=== PATIENT | female | born 1990 | race Asian ===

== ENCOUNTER 2020-03-09 23:02 | Emergency (ER) | payer BC, OTHER ==
--- NOTE | 2020-03-09 23:10 | ED Physician Documentation ---
History of Present Illness - Stated complaint Stated Complaint: FEM /10WEK PREG - History obtained from History obtained from: Patient (the patient is a 29 y/o f who is a @ 10 weeks by LMP who p/w vaginal bleeding and cramping pelvic pain without flank pain or dysuria. denies any other complaints.) Review of Systems Constitutional: reports: Reviewed and negative Eyes: reports: Reviewed and negative Ears: reports: Reviewed and negative Nose: reports: Reviewed and negative Throat: reports: Reviewed and negative Cardiac: reports: Reviewed and negative Respiratory: reports: Reviewed and negative GI: reports: Reviewed and negative : reports: Vaginal bleeding, Now EGA (10 weeks.) Skin: reports: Reviewed and negative Musculoskeletal: reports: Reviewed and negative Neurologic: reports: Reviewed and negative Psychiatric: reports: Reviewed and negative Endocrine: reports: Reviewed and negative Immunocompromised: reports: Reviewed and negative PD PAST MEDICAL HISTORY - Allergies Allergies/Adverse Reactions: Allergies Allergy/AdvReac Type Severity Reaction Status Date / Time No Known Drug Allergies Allergy Verified 03/09/20 23:08 PD ED PE NORMAL - Vitals Vital signs reviewed: Yes - General General: Alert and oriented X 3, No acute distress - HEENT HEENT: PERRL - Neck Neck: Supple, no meningeal sign - Cardiac Cardiac: RRR, No murmur - Respiratory Respiratory: Clear bilaterally - Abdomen Abdomen: Normal bowel sounds, Soft, Non tender, Non distended - Derm Derm: Warm and dry - Extremities Extremities: No deformity - Neuro Neuro: Alert and oriented X 3 - Psych Psych: Normal mood, Normal affect Results - Vitals Vitals: Vital Signs - 24 hr 03/09/20 23:08 Temperature 36.7 C Heart Rate 81 Respiratory 14 Rate Blood Pressure 121/79 O2 Saturation 100 Oxygen O2 Source Room air - Labs Labs: Laboratory Tests 03/09/20 03/09/20 03/09/20 23:15 23:50 23:50 WBC 9.7 RBC 5.71 H Hgb 12.3 Hct 38.8 MCV 68.0 L MCH 21.5 L MCHC 31.7 L RDW 15.4 H Plt Count 365 MPV 10.7 Neut # (Auto) 6.9 H Lymph # (Auto) 2.0 Dent # (Auto) 0.4 Eos # (Auto) 0.2 Baso # (Auto) 0.1 Absolute Nucleated RBC 0.00 Nucleated RBC % 0.0 Manual Slide Review Indicated WBC Morphology NORMAL APPEARANCE Platelet Estimate NORMAL (130-450,000) Platelet Morphology NORMAL APPEARANCE RBC Morph Micro Appear 1+ MICROCYTOSIS Sodium 135 Potassium 3.1 L Chloride 100 L Carbon Dioxide 24 Anion Gap 11.0 BUN 11 Creatinine 0.7 Estimated GFR (MDRD) 98 Glucose 131 H Calcium 9.5 Total Bilirubin 0.5 AST 17 ALT 14 Alkaline Phosphatase 38 L Total Protein 8.3 H Albumin 4.6 Globulin 3.7 Albumin/Globulin Ratio 1.2 Lipase 35 HCG, Quant Urine Color YELLOW Urine Clarity CLEAR Urine pH 6.5 Ur Specific [place] <=1.005 Urine Protein NEGATIVE Urine Glucose (UA) NEGATIVE Urine Ketones NEGATIVE Urine Occult Blood SMALL H Urine Nitrite NEGATIVE Urine Bilirubin NEGATIVE Urine Urobilinogen 0.2 (NORMAL) Ur Leukocyte Esterase NEGATIVE Urine RBC 0-5 Urine WBC 0-3 Ur Squamous Epith Cells FEW Squamous Urine Bacteria None Seen Ur Microscopic Review INDICATED Urine Culture Comments NOT INDICATED Urine HCG, Qual POSITIVE Blood Type 03/09/20 03/09/20 23:50 23:50 WBC RBC Hgb Hct MCV MCH MCHC RDW Plt Count MPV Neut # (Auto) Lymph # (Auto) Dent # (Auto) Eos # (Auto) Baso # (Auto) Absolute Nucleated RBC Nucleated RBC % Manual Slide Review WBC Morphology Platelet Estimate Platelet Morphology RBC Morph Micro Appear Sodium Potassium Chloride Carbon Dioxide Anion Gap BUN Creatinine Estimated GFR (MDRD) Glucose Calcium Total Bilirubin AST ALT Alkaline Phosphatase Total Protein Albumin Globulin Albumin/Globulin Ratio Lipase HCG, Quant 83604.00 Urine Color Urine Clarity Urine pH Ur Specific [place] Urine Protein Urine Glucose (UA) Urine Ketones Urine Occult Blood Urine Nitrite Urine Bilirubin Urine Urobilinogen Ur Leukocyte Esterase Urine RBC Urine WBC Ur Squamous Epith Cells Urine Bacteria Ur Microscopic Review Urine Culture Comments Urine HCG, Qual Blood Type AB POSITIVE PD MEDICAL DECISION MAKING - ED course Complexity details: considered differential (Early . Quant is greater than 40,000 on formal ultrasound shows gestational sac at 6 weeks with no cardiac activity uncertain viability of patient updated on plan she has follow-up on 2 days from now with her OB provider at [facility] would be David plan will be for repeat ultrasound in 48 hours and repeat quant.) Departure - Departure Disposition: 01 Home, Self Care Clinical Impression: Vaginal bleeding during Condition: Stable Instructions: ED Care, Bleeding Early Preg Follow-Up: your, doctor [Other] - Tomorrow Comments: Follow-up with your OB provider as scheduled on for repeat ultrasound and repeat quant.
[2020-03-09 23:12] VITALS: BP 121/79
[2020-03-09 23:23] LABS: BILIRUBIN,URINE NEGATIVE (NEGATIVE); GLUCOSE, URINE (UA) NEGATIVE (NEGATIVE); KETONES,URINE (UA) NEGATIVE (NEGATIVE); LEUKOCYTE ESTERASE, URINE NEGATIVE (NEGATIVE); NITRITE,URINE NEGATIVE (NEGATIVE); OCCULT BLOOD,URINE SMALL (NEGATIVE); PH,URINE 6.5 PH (5.0-7.5); PROTEIN,URINE NEGATIVE (NEGATIVE); UROBILINOGEN,URINE 0.2 (NORMAL) E.U./dL (NORMAL)
[2020-03-09 23:26] LABS: CLARITY,URINE CLEAR (CLEAR); HCG UR QUAL POSITIVE
[2020-03-09 23:38] LABS: BACTERIA,URINE None Seen /HPF (None Seen); RBC,URINE 0-5 /HPF (0-5); SQUAMOUS EPITHELIAL CELL,UR FEW Squamous (<= Few)
[2020-03-09 23:56] LABS: BASOPHILS # (AUTO) 0.1 10^3/uL (0.0-0.1); BASOPHILS % (AUTO) 0.7 %; EOSINOPHILS # (AUTO) 0.2 10^3/uL (0.0-0.7); EOSINOPHILS % (AUTO) 2.1 %; HGB - HEMOGLOBIN 12.3 g/dL (12.0-16.0); MEAN CORPUSCULAR HEMOGLOBIN 21.5 pg (27.0-31.0); MEAN CORPUSCULAR HGB CONC 31.7 g/dL (32.0-36.0); MEAN PLATELET VOLUME 10.7 fL (7.9-10.8); MONOCYTES # (AUTO) 0.4 10^3/uL (0.0-1.0); MONOCYTES % (AUTO) 4.5 %; NEUTROPHILS # (AUTO) 6.9 10^3/uL (1.5-6.6); NEUTROPHILS % (AUTO) 71.3 %; PLT - PLATELET COUNT 365 10^3/uL (130-450); RED BLOOD COUNT 5.71 10^6/uL (4.20-5.40); RED CELL DISTRIBUTION WIDTH 15.4 % (12.0-15.0); WHITE BLOOD COUNT 9.7 x10^3/uL (4.8-10.8)
[2020-03-10 00:10] LABS: ALBUMIN 4.6 g/dL (3.2-5.5); ALBUMIN/GLOBULIN RATIO 1.2 (1.0-2.2); BILIRUBIN,TOTAL 0.5 mg/dL (0.2-1.0); CALCIUM 9.5 mg/dL (8.5-10.3); CREATININE 0.7 mg/dL (0.4-1.0); TOTAL PROTEIN 8.3 g/dL (6.7-8.2)
[2020-03-10 00:38] LABS: PLATELET ESTIMATE, MANUAL NORMAL (130-450,000) (NORMAL); PLATELET MORPHOLOGY NORMAL APPEARANCE (NORMAL); RBC MORPHOLOGY (MULTIPLE) 1+ MICROCYTOSIS (NORMAL)
--- NOTE | 2020-03-10 02:01 | Ultrasound Report ---
Reason: 10 weeks preg bleeding and cramping Procedure Date: 03/10/2020 Accession Number: [id number] / [id number] Procedure: US - OB First Trimester CPT Code: Final Report FULL RESULT: EXAM: FIRST TRIMESTER OBSTETRIC ULTRASOUND (Less than 11 weeks) EXAM DATE: 03/10/2020 01:10 AM. CLINICAL HISTORY: 10 weeks preg bleeding and cramping. LMP: 12/25/2019. COMPARISONS: None. TECHNIQUE: Transabdominal and transvaginal ultrasound examination with static image documentation. CLINICAL DATES: EGA 10 weeks 6 days with VETO 09/30/2020 based on LMP. ASSESSMENT: Gestational Sac: Single intrauterine. Mean gestational sac diameter: 27.4 mm = 7 weeks 5 days. Embryo: CRL (crown-rump length) 3.6 mm = 6 weeks 0 days. Cardiac activity: Not seen. Yolk sac: 4.7 mm. Amniotic fluid: Not accurately assessed at this gestational age. Early placenta: Not visible at this gestational age. Other: No perigestational fluid collection demonstrated. MATERNAL STRUCTURES: Uterus: Anteverted. Possible small uterine septation at the fundus. Suspect 2 small anterior fibroids measuring up to 1.4 x 0.8 x 1.7 cm. Cervix: Closed. Right Ovary/Adnexa: The ovary measures 2.2 x 1.9 x 1.6 cm, volume 3.5 cc. Unremarkable. Left Ovary/Adnexa: The ovary measures 3.0 x 1.6 x 1.6 cm, volume 4.0 cc. Unremarkable. Free Fluid: None. Other: None. IMPRESSION: 1. Intrauterine gestational sac and yolk sac with possible embryonic pole measuring 6 weeks 0 days. No cardiac activity seen. of uncertain viability. Recommend sonographic follow-up. 2. No obvious hemorrhage identified. 3. Suspect 2 small uterine fibroids measuring up to 1.4 x 0.8 x 1.7 cm. RADIA
== END 2020-03-10 02:17 | disposition home or self-care (01) ==
LOC: ED 23:02
DX: O20.9 Hemorrhage in early pregnancy, unspecified (principal); Z3A.01 Less than 8 weeks gestation of pregnancy
CPT/HCPCS: 36415; 76801; 76817; 80053; 81001; 81003; 81025; 83690; 84702; 85025; 86900; 86901; 87086; 99283; 99284

== ENCOUNTER 2020-12-02 07:00 | Outpatient (CLI) | payer BC, OTHER ==
[2020-12-02 16:58] LABS: MUDS CUTOFF CONCENTRATIONS CUTOFF CONC BELOW:
[2020-12-02 17:13] LABS: BILIRUBIN,URINE NEGATIVE (NEGATIVE); GLUCOSE, URINE (UA) NEGATIVE (NEGATIVE); KETONES,URINE (UA) NEGATIVE (NEGATIVE); LEUKOCYTE ESTERASE, URINE NEGATIVE (NEGATIVE); NITRITE,URINE NEGATIVE (NEGATIVE); OCCULT BLOOD,URINE NEGATIVE (NEGATIVE); PROTEIN,URINE NEGATIVE (NEGATIVE); UROBILINOGEN,URINE 0.2 (NORMAL) E.U./dL (NORMAL)
[2020-12-02 17:16] LABS: CLARITY,URINE CLEAR (CLEAR)
[2020-12-02 17:31] LABS: AMPHETAMINE SCREEN,URINE NEGATIVE (NEGATIVE); BENZODIAZEPINES SCREEN, URINE NEGATIVE (NEGATIVE); COCAINE SCREEN URINE NEGATIVE (NEGATIVE); METHADONE SCREEN, URINE NEGATIVE (NEGATIVE); METHAMPHETAMINES SCREEN, URINE NEGATIVE (NEGATIVE); OPIATE SCREEN, URINE NEGATIVE (NEGATIVE); OXYCODONE SCREEN, URINE NEGATIVE (NEGATIVE); PROPOXYPHENE SCREEN, URINE NEGATIVE (NEGATIVE); TRICYCLIC ANTIDEPRESSANT,URINE NEGATIVE (NEGATIVE)
== END 2020-12-02 23:59 | disposition home or self-care (01) ==
LOC: LAB.R 07:00
PROVIDERS: ATTEND Obstetrics & Gynecology
DX: Z34.90 Encounter for supervision of normal pregnancy, unspecified, unspecified trimester (principal)
CPT/HCPCS: 80306; 81001; 81003; 87086

== ENCOUNTER 2021-01-01 12:41 | Outpatient (CLI) | payer OTHER ==
--- NOTE | 2021-01-01 16:57 | Ultrasound Report ---
PROCEDURE: OB First Trimester INDICATIONS: Supervision of normal OUTSIDE/PRIOR DATING DATA: Last menstrual period (LMP): 10/16/2020. LMP-based estimated date of delivery (VETO): 07/23/2021. First dating scan (date and location): This examination. Estimated date of delivery (VETO) from first dating scan: 07/23/2021. TECHNIQUE: Real-time scanning was performed of the fetus and maternal pelvic organs, with image documentation. COMPARISON: None. FINDINGS: Single living intrauterine fetus is present with a crown-rump length measuring 4.13 cm, 11 weeks 0 days. heart rate measures 169 bpm. Perigestational hemorrhage measuring 1.4 x 1.3 x 2. 7 cm. Yolk sac is not well visualized . Cervical length measures 4.3 cm Measurement variability in dating: +/- 4 weeks by LMP, +/- 7 days by mean sac diameter (use before 6 weeks gestation if crown-rump length not able to be measured), +/- 5 days by crown-rump length (6-12 weeks gestation). Maternal organs: there is a presumed left corpus luteum measuring 25 mm.. IMPRESSION: Single living intrauterine fetus, with ultrasound VETO of 07/23/2021. Yolk sac not well visualized. If there is clinical concern for viability based on serial beta hCG values, a repeat ultrasound could be performed Perigestational hemorrhage. Reviewed by: Chano Mason MD on 01/01/2021 4:56 PM PST Approved by: Chano Mason MD on 01/01/2021 4:56 PM PST Station ID: [id number]
== END 2021-01-01 12:42 | disposition home or self-care (01) ==
LOC: DI 12:41
PROVIDERS: ATTEND Nurse Practitioner Obstetrics & Gynecology
DX: O46.8X9 Other antepartum hemorrhage, unspecified trimester (principal); Z3A.00 Weeks of gestation of pregnancy not specified

== ENCOUNTER 2021-01-05 10:35 | Outpatient (CLI) | payer OTHER ==
[2021-01-05 11:16] LABS: BASOPHILS % (AUTO) 0.6 %; EOSINOPHILS # (AUTO) 0.2 10^3/uL (0.0-0.7); EOSINOPHILS % (AUTO) 2.5 %; HCT - HEMATOCRIT 35.1 % (37.0-47.0); HGB - HEMOGLOBIN 11.1 g/dL (12.0-16.0); LYMPHOCYTES # (AUTO) 1.7 10^3/uL (1.5-3.5); LYMPHOCYTES % (AUTO) 26.5 %; MEAN CORPUSCULAR HEMOGLOBIN 21.3 pg (27.0-31.0); MEAN CORPUSCULAR HGB CONC 31.6 g/dL (32.0-36.0); MEAN CORPUSCULAR VOLUME 67.4 fL (81.0-99.0); MEAN PLATELET VOLUME 10.7 fL (7.9-10.8); MONOCYTES # (AUTO) 0.5 10^3/uL (0.0-1.0); MONOCYTES % (AUTO) 7.2 %; NEUTROPHILS % (AUTO) 62.9 %; PLT - PLATELET COUNT 325 10^3/uL (130-450); RED BLOOD COUNT 5.21 10^6/uL (4.20-5.40); RED CELL DISTRIBUTION WIDTH 14.4 % (12.0-15.0); WHITE BLOOD COUNT 6.4 x10^3/uL (4.8-10.8)
[2021-01-05 11:33] LABS: PLATELET ESTIMATE, MANUAL NORMAL (130-450,000) (NORMAL); PLATELET MORPHOLOGY NORMAL APPEARANCE (NORMAL)
[2021-01-05 11:34] LABS: WBC MORPHOLOGY (MULTIPLE) NORMAL APPEARANCE (NORMAL)
[2021-01-06 12:27] LABS: HEPATITIS B SURFACE ANTIGEN NON-REACTIVE (NON-REACTIVE); HEPATITIS C ANTIBODY NON-REACTIVE (NON-REACTIVE)
[2021-01-06 13:56] LABS: HIV AG/AB 4TH GEN NON-REACTIVE (NON-REACTIVE)
== END 2021-01-05 10:36 | disposition home or self-care (01) ==
LOC: LAB 10:35
PROVIDERS: ATTEND Obstetrics & Gynecology
DX: Z34.90 Encounter for supervision of normal pregnancy, unspecified, unspecified trimester (principal); Z36.89 Encounter for other specified antenatal screening
CPT/HCPCS: 36415; 82306; 85025; 86592; 86762; 86787; 86803; 86850; 86900; 86901; 87340; 87389

== ENCOUNTER 2021-01-07 14:22 | Outpatient (CLI) | payer OTHER ==
[2021-01-07 15:32] LABS: % IRON SATURATION 38 % (20-50); IRON 111 ug/dL (28-170); TOTAL IRON BINDING CAPACITY 294 ug/dL (250-450); TRANSFERRIN 210 mg/dL (192-382)
== END 2021-01-07 14:23 | disposition home or self-care (01) ==
LOC: LAB 14:22
PROVIDERS: ATTEND Obstetrics & Gynecology
DX: O99.019 Anemia complicating pregnancy, unspecified trimester (principal); D50.9 Iron deficiency anemia, unspecified
CPT/HCPCS: 36415; 81257; 81599; 82728; 83021; 83540; 84466; 85014; 85018; 85041

== ENCOUNTER 2021-01-15 14:17 | Outpatient (CLI) | payer OTHER | END 2021-01-15 14:18 | disposition home or self-care (01) | LOC: LAB 14:17 | PROVIDERS: ATTEND Obstetrics & Gynecology | DX: Z34.90 Encounter for supervision of normal pregnancy, unspecified, unspecified trimester (principal) | CPT/HCPCS: 36415; 81220 ==

== ENCOUNTER 2021-02-03 14:15 | Outpatient (CLI) | payer OTHER ==
[2021-02-03 14:49] LABS: % IRON SATURATION 35 % (20-50); IRON 125 ug/dL (28-170); TOTAL IRON BINDING CAPACITY 356 ug/dL (250-450); TRANSFERRIN 254 mg/dL (192-382)
== END 2021-02-03 14:16 | disposition home or self-care (01) ==
LOC: LAB 14:15
PROVIDERS: ATTEND Obstetrics & Gynecology
DX: O99.019 Anemia complicating pregnancy, unspecified trimester (principal); D50.9 Iron deficiency anemia, unspecified
CPT/HCPCS: 36415; 81599; 82105; 82728; 83540; 84466

== ENCOUNTER 2021-03-08 12:45 | Outpatient (CLI) | payer OTHER ==
--- NOTE | 2021-03-08 16:53 | Ultrasound Report ---
PROCEDURE: OB Detailed Eval INDICATIONS: SUPERVISION OF NORMAL OUTSIDE/PRIOR DATING DATA: Last menstrual period (LMP): 10/16/2020. LMP-based estimated date of delivery (VETO): 07/23/2021. First dating scan (date and location): 01/01/2021. Estimated date of delivery (VETO) from first dating scan: 07/23/2021. TECHNIQUE: Real-time scanning was performed of the fetus, with image documentation and biometric measurements. COMPARISON: OB ultrasound 01/02/2020 FINDINGS: General: A single living intrauterine gestation is present. Presentation: Variable Placenta: Placental position is posterior, without previa. Amniotic fluid index: 14.2 cm cm, 50th percentile for gestational age. Largest pocket 4.7 cm heart rate: 162 beats per minute. Maternal cervical canal: 3.7 cm long; normal length is 2.5 cm or more. biometrics: Biparietal diameter: 4.6 cm 19 weeks 5 days Head circumference: 17.2 cm 19 weeks 5 days Abdominal circumference: 15.2 cm 20 weeks 3 days Femur length: 3.0 cm 19 weeks 1 day Estimated gestational age from initial scan: 20 weeks 3 days Composite gestational age from present scan: 19 weeks 5 days Estimated weight and percentile: 313 g, 16th percentile Measurement variability in biometric dating: +/- 10 days from 12-20 weeks gestation, +/- 2 weeks from 20-30 weeks gestation, +/- 3 weeks at 30 weeks gestation or later. Anatomic survey: Neuro: Ventricles are normal at less than 10 mm. Cisterna magna is normal at 3-11 mm. Cerebellum i s normal in size and morphology. Nuchal skin fold: Normal at less than 6 mm between 14 and 20 weeks gestational age. Face: Nose and lips, facial profile are normal. Spine: No evidence for spina bifida. Heart: 4-chambered heart is present, with normal ventricular outflow tracts. Diaphragm: Diaphragm is intact. Stomach: Left-sided stomach is present. Kidneys: No hydronephrosis. Normal is less than 5 mm in 2nd trimester, less than 7 mm in 3rd trimester. Cord: 3 vessel cord has orthotopic insertion. Bladder: Normal in size. Extremities: All 4 extremities are visualized. Miscellaneous: There is a focus of heterogeneous echogenicity along the anterior intramural focus of lower uterine segment measuring 4.6 x 3.7 x 2.1 cm. Areas of this was not visualized on prior exam. IMPRESSION: 1. Single live intrauterine with ultrasound gestational age today of 19 weeks 5 days. 2. Anatomy is within normal limits. 3. Intramural focus of heterogeneous echogenicity as above. This is suspicious for fibroid or less li di contraction. It is noted that was not visualized on initial ultrasound. Interval follow-up with attention to this region is recommended for evaluation of potential of growing uterine fibroid. Reviewed by: Melly Mtz MD on 03/08/2021 4:51 PM PDT Approved by: Melly Mtz MD on 03/08/2021 4:51 PM PDT Station ID: [id number]
== END 2021-03-08 12:46 | disposition home or self-care (01) ==
LOC: DI 12:45
PROVIDERS: ATTEND Obstetrics & Gynecology
DX: Z34.92 Encounter for supervision of normal pregnancy, unspecified, second trimester (principal)

== ENCOUNTER 2021-05-07 11:04 | Outpatient (CLI) | payer OTHER ==
[2021-05-07 12:38] LABS: HCT - HEMATOCRIT 31.6 % (37.0-47.0); HGB - HEMOGLOBIN 10.2 g/dL (12.0-16.0); MEAN CORPUSCULAR HEMOGLOBIN 23.6 pg (27.0-31.0); MEAN CORPUSCULAR HGB CONC 32.3 g/dL (32.0-36.0); MEAN CORPUSCULAR VOLUME 73.1 fL (81.0-99.0); MEAN PLATELET VOLUME 10.3 fL (7.9-10.8); RED BLOOD COUNT 4.32 10^6/uL (4.20-5.40); RED CELL DISTRIBUTION WIDTH 15.3 % (12.0-15.0); WHITE BLOOD COUNT 7.4 x10^3/uL (4.8-10.8)
[2021-05-07 13:28] LABS: % IRON SATURATION 22 % (20-50); GLUCOSE,1H PP 50GM DOSE 131; IRON 90 ug/dL (28-170); TOTAL IRON BINDING CAPACITY 403 ug/dL (250-450); TRANSFERRIN 288 mg/dL (192-382)
== END 2021-05-07 11:05 | disposition home or self-care (01) ==
LOC: LAB 11:04
PROVIDERS: ATTEND Obstetrics & Gynecology
DX: O99.019 Anemia complicating pregnancy, unspecified trimester (principal); D50.9 Iron deficiency anemia, unspecified; Z36.89 Encounter for other specified antenatal screening
CPT/HCPCS: 36415; 82728; 82950; 83540; 84466; 85027

== ENCOUNTER 2021-05-20 16:05 | Outpatient (CLI) | payer OTHER ==
--- NOTE | 2021-05-21 09:41 | Ultrasound Report ---
PROCEDURE: OB F/U or Repeat INDICATIONS: SUPERVISION OF HIGH RISK OUTSIDE/PRIOR DATING DATA: Last menstrual period (LMP): 10/16/2020. LMP-based estimated date of delivery (VETO): 07/23/2021. First dating scan (date and location): 01/01/2021. Estimated date of delivery (VETO) from first dating scan: 07/23/2021. The below data below was generated using the VETO of 07/23/2021, which was the same for both clinical a nd ultrasound dating. TECHNIQUE: Real-time scanning was performed of the fetus, with image documentation and biometric measurements. COMPARISON: OB ultrasound 03/08/2021, 01/01/2021 FINDINGS: General: A single living intrauterine gestation is present. Presentation: Vertex Placenta: Placental position is posterior, without previa. Amniotic fluid index: 15.5 cm largest pocket 4.7 cm heart rate: 150 beats per minute. Maternal cervical canal: Not assessed biometrics: Biparietal diameter: 7.6 cm 30 weeks 3 days Head circumference: 28.2 cm 30 weeks 6 days Abdominal circumference: 27.9 cm 31 weeks 0 days Femur length: 4.8 cm 26 weeks 2 days Estimated gestational age from initial scan: 30 weeks 6 days Composite gestational age from present scan: 29 weeks 5 days Estimated weight and percentile: 1395 g 6.7 percentile compared to 313 g 15.8 percentile on 02/27 Measurement variability in biometric dating: +/- 10 days from 12-20 weeks gestation, +/- 2 weeks from 20-30 weeks gestation, +/- 3 weeks at 30 weeks gestation or more. Other: Not applicable. IMPRESSION: 1. Single live intrauterine . 2. Estimated weight is at the 6.7 percentile decreased from 15.8 percentile on prior exam. Size raises concern for intrauterine growth restriction. Reviewed by: Melly Mtz MD on 05/21/2021 9:39 AM PDT Approved by: Melly Mtz MD on 05/21/2021 9:39 AM PDT Station ID: [id number]
== END 2021-05-20 16:06 | disposition home or self-care (01) ==
LOC: DI 16:05
PROVIDERS: ATTEND Obstetrics & Gynecology
DX: O09.93 Supervision of high risk pregnancy, unspecified, third trimester (principal); O99.013 Anemia complicating pregnancy, third trimester; D64.89 Other specified anemias; Z3A.30 30 weeks gestation of pregnancy; Z36.4 Encounter for antenatal screening for fetal growth retardation

== ENCOUNTER 2021-06-07 14:24 | Outpatient (CLI) | payer OTHER ==
--- NOTE | 2021-06-07 16:38 | Ultrasound Report ---
PROCEDURE: OB Limited INDICATIONS: OUTSIDE/PRIOR DATING DATA: Last menstrual period (LMP): 10/16/2020. LMP-based estimated date of delivery (VETO): 07/23/2021. First dating scan (date and location): 01/01/2021. Estimated date of delivery (VETO) from first dating scan: 07/23/2021. The below data below was generated using the ultrasound VETO of 07/23/2021 TECHNIQUE: Real-time scanning was performed of the fetus, with image documentation. Endovaginal scanning: Not performed. COMPARISON: 05/20/2021 FINDINGS: A single living intrauterine gestation is present. Presentation: Vertex Placenta: Placental position is posterior, without previa. Amniotic fluid index: 15.8 cm, normal for gestational age. Largest pocket 5.1 cm. heart rate: 138 beats per minutes. Maternal cervical canal: 3.6 cm. No funneling. Estimated gestational age from initial scan: 33 weeks 3 days. Small anterior maternal uterine fibroids measuring 2.3 cm and 1.7 cm. IMPRESSION: 1. Calderon living intrauterine at 33 weeks 3 days based on prior ultrasound. Vertex posit ion. 2. Normal placenta and amniotic fluid. 3. Small maternal fibroids. Reviewed by: Sonu Cain MD on 06/07/2021 4:37 PM PDT Approved by: Sonu Cain MD on 06/07/2021 4:37 PM PDT Station ID: [id number]
== END 2021-06-07 14:25 | disposition home or self-care (01) ==
LOC: DI 14:24
PROVIDERS: ATTEND Obstetrics & Gynecology
DX: O36.5990 Maternal care for other known or suspected poor fetal growth, unspecified trimester, not applicable or unspecified (principal); O34.13 Maternal care for benign tumor of corpus uteri, third trimester; Z3A.33 33 weeks gestation of pregnancy

== ENCOUNTER 2021-06-07 15:20 | Outpatient (CLI) | payer OTHER ==
[2021-06-07 17:18] VITALS: BP 100/66
--- NOTE | 2021-06-08 12:09 | PROCEDURE REPORT ---
- HPI Diagnosis/Indication for NST: Intrauterine growth restriction Current EDU 07/23/21 Gestation 33 Weeks and 3 Days 2 Para 0 Vital Signs Temperature 97.9 F 06/07/21 15:40 Heart Rate 91 06/07/21 15:40 Respiratory Rate 16 06/07/21 15:40 Blood Pressure 100/66 06/07/21 15:40 O2 Saturation 99 06/07/21 15:40 Temperature 97.9 F 06/07/21 15:40 Heart Rate 91 06/07/21 15:40 Respiratory Rate 16 06/07/21 15:40 Blood Pressure 100/66 06/07/21 15:40 O2 Saturation 99 06/07/21 15:40 - NST Procedure NST Procedure Start Date 06/07/21 Start Time 15:47 Stop Time 16:15 Vibroacoustic Stimulation Used No Patient States Movement Yes EFM 140 mod alva 15x15 accels no decels TOCO: quiet - Results and Plan Findings/Impression: Patient is a 30 yo at 33+3 wga with affected by intrauterine growth restrictions here for NST -Cat I tracing -cont with twice weekly NST and weekly TRISTA. NST read on 06/07/21 DOS 06/07/21 DX: IUGR IUP at 33+3 wga
== END 2021-06-07 16:30 | disposition home or self-care (01) ==
LOC: WFO 15:20 → FBP 15:22 → WFO 16:30
PROVIDERS: ATTEND Obstetrics & Gynecology
DX: O36.5930 Maternal care for other known or suspected poor fetal growth, third trimester, not applicable or unspecified (principal); Z3A.33 33 weeks gestation of pregnancy; O34.13 Maternal care for benign tumor of corpus uteri, third trimester
CPT/HCPCS: 59025

== ENCOUNTER 2021-06-14 13:28 | Outpatient (CLI) | payer OTHER ==
[2021-06-14 13:40] VITALS: BP 131/81
--- NOTE | 2021-06-19 04:23 | PROCEDURE REPORT ---
- HPI Diagnosis/Indication for NST: Intrauterine growth restriction Current EDU 07/23/21 Gestation 34 Weeks and 3 Days 2 Para 1 Vital Signs Temperature 98.0 F 06/14/21 13:39 Heart Rate 109 H 06/14/21 13:39 Respiratory Rate 20 06/14/21 13:39 Blood Pressure 131/81 H 06/14/21 13:39 O2 Saturation 100 06/14/21 13:39 Temperature 98.0 F 06/14/21 13:39 Heart Rate 109 H 06/14/21 13:39 Respiratory Rate 20 06/14/21 13:39 Blood Pressure 131/81 H 06/14/21 13:39 O2 Saturation 100 06/14/21 13:39 - NST Procedure NST Procedure Start Date 06/14/21 Start Time 13:36 Stop Time 13:57 Vibroacoustic Stimulation Used No Patient States Movement Yes EFM 140 mod alva 15x15 accels no decels TOCO: Quiet - Results and Plan Findings/Impression: 30 yo at 34+3 wga with a affected by restricted growth here for NSt Cat I tracing Cont with once weekly NST and BPP per MFM DX: SGA IUP at 34+3 wga DOS: 06/14/21 NST read 06/14/21
== END 2021-06-14 13:57 | disposition home or self-care (01) ==
LOC: WFO 13:28 → FBP 13:32 → WFO 13:57
PROVIDERS: ATTEND Obstetrics & Gynecology
DX: O36.5930 Maternal care for other known or suspected poor fetal growth, third trimester, not applicable or unspecified (principal); Z3A.34 34 weeks gestation of pregnancy
CPT/HCPCS: 59025

== ENCOUNTER 2021-06-14 14:02 | Outpatient (CLI) | payer OTHER ==
--- NOTE | 2021-06-14 16:54 | Ultrasound Report ---
PROCEDURE: OB Limited INDICATIONS: GROWTH RETARDATION, ANTEPARTUM OUTSIDE/PRIOR DATING DATA: Last menstrual period (LMP): 10/16/2020. LMP-based estimated date of delivery (VETO): 07/23/2021. First dating scan (date and location): 01/01/2021. Estimated date of delivery (VETO) from first dating scan: 07/23/2021 TECHNIQUE: Real-time scanning was performed of the fetus, with image documentation. Endovaginal scanning: Not performed COMPARISON: None. FINDINGS: A single living intrauterine gestation is present. Presentation: Vertex Placenta: Placental position is posterior, without previa. Amniotic fluid index: 13.8 cm heart rate: 137 beats per minutes. Maternal cervical canal: Not imaged Estimated gestational age by initial ultrasound: 34 weeks 3 days Current survey of anatomy includes normal chest/diaphragm, stomach/abdomen, bilateral renal reg ions, urinary bladder/pelvis. IMPRESSION: Single living intrauterine gestation as above. Reviewed by: Lindy Gracia MD on 06/14/2021 4:53 PM PDT Approved by: Lindy Gracia MD on 06/14/2021 4:53 PM PDT Station ID: [id number]
== END 2021-06-14 14:03 | disposition home or self-care (01) ==
LOC: DI 14:02
PROVIDERS: ATTEND Obstetrics & Gynecology
DX: O36.5930 Maternal care for other known or suspected poor fetal growth, third trimester, not applicable or unspecified (principal); Z3A.34 34 weeks gestation of pregnancy

== ENCOUNTER 2021-06-21 13:22 | Outpatient (CLI) | payer OTHER ==
[2021-06-21 13:34] VITALS: BP 106/73
--- NOTE | 2021-06-21 19:08 | PROCEDURE REPORT ---
- HPI Diagnosis/Indication for NST: Intrauterine growth restriction Current EDU 07/23/21 Gestation 35 Weeks and 3 Days 2 Para 0 Vital Signs Temperature 98.2 F 06/21/21 13:33 Heart Rate 109 H 06/21/21 13:33 Respiratory Rate 16 06/21/21 13:33 Blood Pressure 106/73 06/21/21 13:33 O2 Saturation 100 06/21/21 13:33 Temperature 98.2 F 06/21/21 13:33 Heart Rate 109 H 06/21/21 13:33 Respiratory Rate 16 06/21/21 13:33 Blood Pressure 106/73 06/21/21 13:33 O2 Saturation 100 06/21/21 13:33 - NST Procedure NST Procedure Start Date 06/21/21 Start Time 13:31 Stop Time 13:51 Vibroacoustic Stimulation Used No Patient States Movement Yes 145 beats per minute baseline, moderate variability, accelerations present, no decelerations. Contractions irregular. Category 1 tracing. - Results and Plan Findings/Impression: Patient is a 30-year-old -0-1-0 at 35 weeks 3 days gestation here for scheduled NST. NST Performed 06/21/2021 NST Read 06/21/2021 Diagnosis 35 weeks gestation Intrauterine growth restriction Category 1 tracing Continue with twice weekly NST. Patient was discharged with labor precautions
== END 2021-06-21 13:58 | disposition home or self-care (01) ==
LOC: WFO 13:22 → FBP 13:24 → WFO 13:58
PROVIDERS: ATTEND Obstetrics & Gynecology
DX: O09.90 Supervision of high risk pregnancy, unspecified, unspecified trimester (principal); O36.5930 Maternal care for other known or suspected poor fetal growth, third trimester, not applicable or unspecified; O99.019 Anemia complicating pregnancy, unspecified trimester; Z3A.35 35 weeks gestation of pregnancy
CPT/HCPCS: 59025

== ENCOUNTER 2021-06-21 13:57 | Outpatient (CLI) | payer OTHER ==
--- NOTE | 2021-06-21 16:27 | Ultrasound Report ---
PROCEDURE: OB Biophysical Profile INDICATIONS: GROWTH RETARDATION OUTSIDE/PRIOR DATING DATA: Last menstrual period (LMP): 10/16/2020. LMP-based estimated date of delivery (VETO): 07/23/2021. First dating scan (date and location): 01/01/2021. Estimated date of delivery (VETO) from first dating scan: 07/23/2021. The below data below was generated using the ultrasound generated VETO of 07/23/2021 TECHNIQUE: Real-time scanning was performed of the fetus, with image documentation and biometric janiya surements. Biophysical profile was also obtained. Endovaginal scanning: Not performed COMPARISON: None. FINDINGS: General: A single living intrauterine gestation is present. Presentation: Vertex Placenta: Placental position is posterior, without previa. Amniotic fluid index: 13.0 cm, normal for gestational age. heart rate: 155 beats per minute. Maternal cervical canal: Not well seen. Biophysical profile: Tone: 2 points. Movement: 2 points. Respiration: 2 points. Largest pocket of fluid: 2 points (5.1 cm). Umbilical artery Doppler: S/D ratios in the umbilical cord are 2.3, 2.0, and 2.1 cm at the umb ilicus, mid segment, and placenta, respectively. IMPRESSION: Single live intrauterine gestation. Normal TRISTA. Normal biophysical profile. Normal cord S/D ratios. Reviewed by: Juvenal Dumont MD on 06/21/2021 4:26 PM PDT Approved by: Juvenal Dumont MD on 06/21/2021 4:26 PM PDT Station ID: [id number]
== END 2021-06-21 13:58 | disposition home or self-care (01) ==
LOC: DI 13:57
PROVIDERS: ATTEND Obstetrics & Gynecology
DX: O36.5990 Maternal care for other known or suspected poor fetal growth, unspecified trimester, not applicable or unspecified (principal); O09.90 Supervision of high risk pregnancy, unspecified, unspecified trimester; O99.019 Anemia complicating pregnancy, unspecified trimester; Z3A.00 Weeks of gestation of pregnancy not specified

== ENCOUNTER 2021-06-28 08:00 | Outpatient (CLI) | payer OTHER | END 2021-06-28 23:59 | disposition home or self-care (01) | LOC: LAB.WC 08:00 | PROVIDERS: ATTEND Obstetrics & Gynecology | DX: O09.90 Supervision of high risk pregnancy, unspecified, unspecified trimester (principal); Z36.85 Encounter for antenatal screening for Streptococcus B | CPT/HCPCS: 87797 ==

== ENCOUNTER 2021-06-28 13:24 | Outpatient (CLI) | payer OTHER ==
[2021-06-28 13:39] VITALS: BP 114/81
--- NOTE | 2021-06-28 18:09 | PROCEDURE REPORT ---
- HPI Current EDU 07/23/21 Gestation 36 Weeks and 3 Days 2 Para 0 Vital Signs Temperature 98.1 F 06/28/21 13:34 Heart Rate 91 06/28/21 13:34 Respiratory Rate 16 06/28/21 13:34 Blood Pressure 114/81 H 06/28/21 13:34 O2 Saturation 100 06/28/21 13:34 Temperature 98.1 F 06/28/21 13:34 Heart Rate 91 06/28/21 13:34 Respiratory Rate 16 06/28/21 13:34 Blood Pressure 114/81 H 06/28/21 13:34 O2 Saturation 100 06/28/21 13:34 - NST Procedure NST Procedure Start Date 06/28/21 Start Time 13:32 Stop Time 15:52 Vibroacoustic Stimulation Used No Patient States Movement Yes Patient is without complaints. NST: 140's moderate variability with accelerations that are 15X15. No decelerations. Reactive NST and Category I monitor. A-IUP 36 3/7 with Chronic Hypertension. P- Keep all appointments for clinic and monitoring.
== END 2021-06-28 13:55 | disposition home or self-care (01) ==
LOC: WFO 13:24 → FBP 13:27 → WFO 13:55
PROVIDERS: ATTEND Obstetrics & Gynecology
DX: O10.913 Unspecified pre-existing hypertension complicating pregnancy, third trimester (principal); Z3A.36 36 weeks gestation of pregnancy; O36.5930 Maternal care for other known or suspected poor fetal growth, third trimester, not applicable or unspecified; O99.013 Anemia complicating pregnancy, third trimester; O09.93 Supervision of high risk pregnancy, unspecified, third trimester; D50.9 Iron deficiency anemia, unspecified
CPT/HCPCS: 59025

== ENCOUNTER 2021-06-28 14:01 | Outpatient (CLI) | payer OTHER ==
--- NOTE | 2021-06-28 15:18 | Ultrasound Report ---
PROCEDURE: OB Biophysical Profile INDICATIONS: GROWTH RETARDATION OUTSIDE/PRIOR DATING DATA: Last menstrual period (LMP): 10/16/2020. LMP-based estimated date of delivery (VETO): 07/23/21. First dating scan (date and location): 01/01/2021. Estimated date of delivery (VETO) from first dating scan: 07/23/2021. The below data below was generated using the above VETO of 07/23/2021 TECHNIQUE: Real-time scanning was performed of the fetus, with image documentation and biometric janiya surements. Biophysical profile was also obtained. Endovaginal scanning: Not needed COMPARISON: All prior OB ultrasound studies for this FINDINGS: General: A single living intrauterine gestation is present. Presentation: Cephalic Placenta: Placental position is posterior left, without previa. Amniotic fluid index: 12.1 cm, normal for gestational age. heart rate: 144 beats per minute. Maternal cervical canal is not well seen due to vertex presentation. biometrics: Estimated gestational age from initial scan: 36 weeks 3 days Biophysical profile: Tone: 2 points. Movement: 2 points. Respiration: 2 points. Largest pocket of fluid: 2 points. Umbilical artery Doppler: 2.5, 2.1, 2.2 IMPRESSION: Normal amniotic fluid volume, normal biophysical profile, normal systolic/diastolic ratio at the umbi lical artery. The delivery date is projected to be centered on 07/23/2021. Reviewed by: Jake Springer MD on 06/28/2021 3:17 PM PDT Approved by: Jake Springer MD on 06/28/2021 3:17 PM PDT Station ID: [id number]
== END 2021-06-28 14:02 | disposition home or self-care (01) ==
LOC: DI 14:01
PROVIDERS: ATTEND Obstetrics & Gynecology
DX: O36.5930 Maternal care for other known or suspected poor fetal growth, third trimester, not applicable or unspecified (principal); O99.013 Anemia complicating pregnancy, third trimester; O09.93 Supervision of high risk pregnancy, unspecified, third trimester; D50.9 Iron deficiency anemia, unspecified; Z3A.36 36 weeks gestation of pregnancy

== ENCOUNTER 2021-07-06 13:25 | Outpatient (CLI) | payer OTHER ==
[2021-07-06 13:50] VITALS: BP 116/80
--- NOTE | 2021-07-06 16:51 | PROCEDURE REPORT ---
- HPI Diagnosis/Indication for NST: Intrauterine growth restriction Current EDU 07/23/21 Gestation 37 Weeks and 4 Days 2 Para 0 Vital Signs Heart Rate 103 H 07/06/21 13:49 Respiratory Rate 16 07/06/21 13:49 Blood Pressure 116/80 07/06/21 13:49 Temperature Heart Rate 103 H 07/06/21 13:49 Respiratory Rate 16 07/06/21 13:49 Blood Pressure 116/80 07/06/21 13:49 O2 Saturation - NST Procedure NST Procedure Start Date 07/06/21 Start Time 13:37 Stop Time 14:06 Vibroacoustic Stimulation Used No Patient States Movement Yes 30 yo at 37 4/7 with IUGR presents for NST. Patient is without complaints. NST: Baseline 135 with moderate Variability. Accelerations 15X15 are present. No decelerations. No contractions. Reactive NST, Category I monitor strip. A-IUP 37 4/7 with IUGR P- Keep all scheduled appointments and monitoring.
== END 2021-07-06 14:10 | disposition home or self-care (01) ==
LOC: WFO 13:25 → FBP 13:28 → WFO 14:10
PROVIDERS: ATTEND Obstetrics & Gynecology
DX: O36.5930 Maternal care for other known or suspected poor fetal growth, third trimester, not applicable or unspecified (principal); Z3A.37 37 weeks gestation of pregnancy
CPT/HCPCS: 59025

== ENCOUNTER 2021-07-06 14:13 | Outpatient (CLI) | payer OTHER ==
--- NOTE | 2021-07-06 15:49 | Ultrasound Report ---
PROCEDURE: OB Biophysical Profile INDICATIONS: GROWTH RETARDATION OUTSIDE/PRIOR DATING DATA: Last menstrual period (LMP): 10/16/2020. LMP-based estimated date of delivery (VETO): 07/23/2021. First dating scan (date and location): 01/01/2021. Gal. Estimated date of delivery (VETO) from first dating scan: 07/23/2021. The below data below was generated using the initial ultrasound/LMP VETO of 07/23/2021 TECHNIQUE: Real-time scanning was performed of the fetus, with image documentation and biometric janiya surements. Biophysical profile was also obtained. COMPARISON: None. FINDINGS: General: A single living intrauterine gestation is present. Presentation: Vertex Placenta: Placental position is posterior left, without previa. Amniotic fluid index: 13 cm, normal for gestational age. heart rate: 155 beats per minute. Maternal cervical canal: Not well seen. anatomy: The chest/diaphragm, stomach/abdomen, bilateral renal regions, and urinary bladder/pelvis are visuali zed and are normal. Remaining anatomy is not well evaluated. Biophysical profile: Tone: 2 points. Movement: 2 points. Respiration: 2 points. Largest pocket of fluid: 2 points. 5.1 cm Umbilical artery Doppler: Abdomen-2.0 Mid-2.0 Placenta-2.0 IMPRESSION: 1. Biophysical profile = 8/8. 2. Normal cord SD ratios. 3. TRISTA = 13.7 cm. 4. VETO = 07/23/2021 Reviewed by: Sp Jolley on 07/06/2021 3:47 PM PDT Approved by: Sp Jolley on 07/06/2021 3:47 PM PDT Station ID: [id number]
== END 2021-07-06 14:14 | disposition home or self-care (01) ==
LOC: DI 14:13
PROVIDERS: ATTEND Obstetrics & Gynecology
DX: O36.5990 Maternal care for other known or suspected poor fetal growth, unspecified trimester, not applicable or unspecified (principal); O09.90 Supervision of high risk pregnancy, unspecified, unspecified trimester; O99.019 Anemia complicating pregnancy, unspecified trimester; D50.9 Iron deficiency anemia, unspecified; Z3A.00 Weeks of gestation of pregnancy not specified

== ENCOUNTER 2021-07-12 13:21 | Outpatient (CLI) | payer OTHER ==
[2021-07-12 13:40] VITALS: BP 118/73
--- NOTE | 2021-07-12 14:02 | PROCEDURE REPORT ---
- HPI Diagnosis/Indication for NST: Intrauterine growth restriction Vital Signs Temperature 98.4 F 07/12/21 13:30 Heart Rate 87 07/12/21 13:30 Respiratory Rate 18 07/12/21 13:30 Blood Pressure 126/83 H 07/12/21 13:30 O2 Saturation 99 07/12/21 13:30 Temperature 98.4 F 07/12/21 13:30 Heart Rate 87 07/12/21 13:30 Respiratory Rate 18 07/12/21 13:30 Blood Pressure 118/73 07/12/21 13:35 O2 Saturation 99 07/12/21 13:30 - NST Procedure NST Procedure Start Time 13:37 Stop Time 14:06 30yo at 383/7 presents for NST due to IUGR. Patient reports good movement. Patient denies contractions. NST: 140 baseline with moderate variability. Patient has accelerations of 15X15 and no decelerations. Patient is not having contractions. Reactive NST and Category I monitor strip. A/P -IUP 38 3/7 with IUGR. Keep all scheduled monitoring and clinic appointments.
== END 2021-07-12 13:54 | disposition home or self-care (01) ==
LOC: WFO 13:21 → FBP 13:24 → WFO 13:54
PROVIDERS: ATTEND Obstetrics & Gynecology
DX: O36.5930 Maternal care for other known or suspected poor fetal growth, third trimester, not applicable or unspecified (principal); Z3A.38 38 weeks gestation of pregnancy
CPT/HCPCS: 59025

== ENCOUNTER 2021-07-12 14:00 | Outpatient (CLI) | payer OTHER ==
--- NOTE | 2021-07-12 15:19 | Ultrasound Report ---
PROCEDURE: OB Biophysical Profile INDICATIONS: GROWTH RETARDATION OUTSIDE/PRIOR DATING DATA: Last menstrual period (LMP): 10/16/2020. LMP-based estimated date of delivery (VETO): 07/23/2021. First dating scan (date and location): 01/01/2021. Estimated date of delivery (VETO) from first dating scan: 07/23/2021. The below data below was generated using the clinical and ultrasound VETO of 07/23/2021 TECHNIQUE: Real-time scanning was performed of the fetus, with image documentation and biometric janiya surements. Biophysical profile was also obtained. COMPARISON: OB ultrasound 06/28/2021, 07/06/2021, 01/01/2021 FINDINGS: General: A single living intrauterine gestation is present. Presentation: Vertex Placenta: Placental position is posterior, without previa. Amniotic fluid index: 14.3 cm, largest pocket measures 4.84 cm, compared to 3.82 cm heart rate: 169 beats per minute. Maternal cervical canal: 3.9 cm biometrics: Estimated gestational age from initial scan: 8 weeks 3 days . Biophysical profile: Tone: 2 points. Movement: 2 points. Respiration: 2 points. Largest pocket of fluid: 2 points. Umbilical artery Doppler: 2.2, 1.7, 2.0 IMPRESSION: 1. Single live intrauterine . 2. TRISTA 13.3 cm, largest pocket 4.84 cm 3. BPP 8 out of 8 Reviewed by: Melly Mtz MD on 07/12/2021 3:17 PM PDT Approved by: Melly Mtz MD on 07/12/2021 3:17 PM PDT Station ID: [id number]
== END 2021-07-12 14:01 | disposition home or self-care (01) ==
LOC: DI 14:00
PROVIDERS: ATTEND Obstetrics & Gynecology
DX: O36.5910 Maternal care for other known or suspected poor fetal growth, first trimester, not applicable or unspecified (principal); O09.91 Supervision of high risk pregnancy, unspecified, first trimester; O99.011 Anemia complicating pregnancy, first trimester; D50.9 Iron deficiency anemia, unspecified; Z3A.08 8 weeks gestation of pregnancy

== ENCOUNTER 2021-07-16 10:34 | Outpatient (CLI) | payer OTHER ==
[2021-07-16 10:52] VITALS: BP 112/76
--- NOTE | 2021-07-16 12:14 | PROCEDURE REPORT ---
- HPI Diagnosis/Indication for NST: Intrauterine growth restriction Current EDU 07/23/21 Gestation 39 Weeks and 0 Days 2 Para 1 Vital Signs Temperature 98.2 F 07/16/21 10:51 Heart Rate 112 H 07/16/21 10:51 Respiratory Rate 17 07/16/21 10:51 Blood Pressure 112/76 07/16/21 10:51 O2 Saturation 100 07/16/21 10:51 Temperature 98.2 F 07/16/21 10:51 Heart Rate 112 H 07/16/21 10:51 Respiratory Rate 17 07/16/21 10:51 Blood Pressure 112/76 07/16/21 10:51 O2 Saturation 100 07/16/21 10:51 - NST Procedure NST Procedure Start Date 07/16/21 Start Time 10:42 Stop Time 11:12 Vibroacoustic Stimulation Used No Patient States Movement Yes - Results and Plan Findings/Impression: Patient is a 30-year-old G2, P1 at 39 weeks 0 days gestation here for scheduled NST. NST Performed 07/16/2021 NST Read 07/16/2021 145 beats minute baseline, moderate variability, accelerations present, no decelerations. No contractions. Category 1. Diagnosis 39 weeks gestation Intrauterine growth restriction Reactive NST Plan: Continue current management, with induction of labor on 07/19/2021.
== END 2021-07-16 11:20 | disposition home or self-care (01) ==
LOC: WFO 10:34 → FBP 10:36 → WFO 11:20
PROVIDERS: ATTEND Obstetrics & Gynecology
DX: O36.5930 Maternal care for other known or suspected poor fetal growth, third trimester, not applicable or unspecified (principal); Z3A.39 39 weeks gestation of pregnancy
CPT/HCPCS: 59025

== ENCOUNTER 2021-07-19 02:48 | Inpatient (IN) | payer OTHER ==
[2021-07-19] MEDS ORDERED: miSOPROStoL 200 MCG TABLET BC PRN (03:14)
[2021-07-19] MEDS ORDERED: LIDOCAINE-MPF 1% 30 ML VIAL ID PRN (03:14)
[2021-07-19] MEDS ORDERED: ONDANSETRON 4 MG/2 ML VIAL IVP PRN ×2 (03:14→07:29)
[2021-07-19] MEDS ORDERED: OXYTOCIN 10 UNIT/ML VIAL IM PRN (03:14)
[2021-07-19] MEDS ORDERED: SODIUM CHLORIDE FLUSH 0.9% 10 ML SYRINGE IVP PRN (03:14)
[2021-07-19] MEDS ORDERED: fentaNYL 100 MCG/2 ML VIAL IVP PRN (03:14)
[2021-07-19] MEDS ORDERED: TRANEXAMIC ACID IN NACL 1,000 MG/100 ML BAG IV PRN (03:14)
[2021-07-19] MEDS ORDERED: CARBOPROST TROMETHAMINE 250 MCG/ML AMP IM PRN (03:14)
[2021-07-19] MEDS ORDERED: METHYLERGONOVINE 0.2 MG/ML VIAL IM PRN (03:14)
[2021-07-19] MEDS ORDERED: OXYTOCIN/SODIUM CHLORIDE 500 ML IV PRN (03:14)
--- NOTE | 2021-07-19 03:23 | HISTORY & PHYSICAL EXAMINATION ---
Admit History - : 2 Parity: 0 : 1 Risk/History: positive: None Smoking Status: Never smoker - Mother's Labs Mother's Blood Type: positive: AB Mother's RH: positive: Positive GBS: positive: Group B Step Negative Rubella Status: positive: Immune - Other Maternal History Other Maternal History: Patient is a 30-year-old G2, P1 at 39 weeks 3 days gestation by LMP consistent with 11-week ultrasound presenting with contractions that started last night. She called triage earlier in the evening complaining of contractions 8 to 10 minutes apart. These progressed throughout the morning until now when they are every 3-5 minutes with increased intensity. No leaking of fluid or vaginal bleeding. She has good movement. She was scheduled for induction of labor later this morning has been complicated by intrauterine growth restriction and was consulted with MFM with most recent ultrasound showing 6.5 percentile.In addition, she has beta thalassemia trait, but father of baby was negative. Most recent hemoglobin and hematocrit were normal. Has been supplementing with iron this . Family history: Denies pertinent history Past surgical history keloid removal as a child. Family history: Mother: Hypertension, diabetes Father: Hypertension, diabetes Paternal grandfather: Colon cancer Maternal grandmother: Diabetes, hypertension, CVD Maternal grandfather: Hypertension, CVD Sister: Bipolar disorder [employer] history: Menarche age 10, 28-day cycles. No history of STIs. No history of abnormal Pap smears. Most recent in 2020 was negative. OB history: -0-1-0 1. 05/220, 10 weeks, spontaneous Meds/Allgy - Allergies Allergies/Adverse Reactions: Allergies Allergy/AdvReac Type Severity Reaction Status Date / Time No Known Drug Allergies Allergy Verified 03/09/20 23:08 Review of Systems - All Other Systems All Other Systems: reports: Reviewed and negative Physical - Abdominal Exam Vital Signs: Temperature: 97.7 Heart rate: 87 Blood pressure: 134/89 Respiratory rate 18 Contraction Frequency (min/apart): 3-5 Contraction Intensity: positive: Moderate - Monitoring Heart Rate Baseline: 140 Strip Review: positive: Category I - Presentation Presentation: positive: Vertex - Vaginal Exam Membranes: positive: Membranes intact Dilation (in cm): 5 Effacement (%): 90 Station: positive: -1 Cervical Position: positive: Midposition - Speculum Exam Speculum Exam Performed: positive: No Plan for Labor - Plan For Labor I expect patient to be DC'd or transferred within 96 hours.: No Plan for Labor: 30-year-old G2, P1 at 39 weeks 3 days gestation by LMP consistent with 11-week ultrasound admitted for labor 1. 39 weeks gestation -Admit to L&D, anticipate AROM, anticipate -Epidural at patient's request 2. Intrauterine growth restriction -Most recent EFW at 6.5 percentile, MFM consult previously showed an EFW in the 8th percentile predominantly from a low femur percentile. Fetus has had appropriate interval growth 3. Beta thalassemia trait -Most recent H&H: 11.6/36.8%.
[2021-07-19 03:32] LABS: BASOPHILS % (AUTO) 0.3 %; EOSINOPHILS # (AUTO) 0.2 10^3/uL (0.0-0.7); EOSINOPHILS % (AUTO) 1.8 %; HCT - HEMATOCRIT 36.8 % (37.0-47.0); HGB - HEMOGLOBIN 11.6 g/dL (12.0-16.0); LYMPHOCYTES # (AUTO) 2.2 10^3/uL (1.5-3.5); LYMPHOCYTES % (AUTO) 21.2 %; MEAN CORPUSCULAR HEMOGLOBIN 23.1 pg (27.0-31.0); MEAN CORPUSCULAR HGB CONC 31.5 g/dL (32.0-36.0); MEAN CORPUSCULAR VOLUME 73.3 fL (81.0-99.0); MEAN PLATELET VOLUME 11.7 fL (7.9-10.8); MONOCYTES # (AUTO) 0.8 10^3/uL (0.0-1.0); MONOCYTES % (AUTO) 7.5 %; NEUTROPHILS # (AUTO) 7.1 10^3/uL (1.5-6.6); NEUTROPHILS % (AUTO) 68.3 %; NRBC ABSOLUTE COUNT (AUTO) 0.06 x10^3/uL; NUCLEATED RED BLOOD CELLS AUTO 0.6 /100WBC; PLT - PLATELET COUNT 271 10^3/uL (130-450); RED BLOOD COUNT 5.02 10^6/uL (4.20-5.40); RED CELL DISTRIBUTION WIDTH 15.9 % (12.0-15.0); WHITE BLOOD COUNT 10.4 x10^3/uL (4.8-10.8)
[2021-07-19] MEDS: LACTATED RINGERS 1,000 ML IV SCH ×2 (03:40→08:13)
[2021-07-19] MEDS ORDERED: BUPIVACAINE 0.25% PF 10 ML VIAL ONE (05:00)
[2021-07-19] MEDS ORDERED: ROPIVACAINE 0.2% 200 MG/100 ML BAG EP ONE (05:00)
[2021-07-19] MEDS ORDERED: diphenhydrAMINE INJ 50 MG/ML VIAL IVP PRN (07:29)
[2021-07-19] MEDS ORDERED: NALOXONE 0.4 MG/ML VIAL IVP PRN (07:29)
[2021-07-19] MEDS ORDERED: ePHEDrine 50 MG/ML VIAL IVP PRN (07:29)
[2021-07-19] MEDS ORDERED: NALBUPHINE 10 MG/ML AMP IVP PRN (07:29)
[2021-07-19] MEDS ORDERED: ROPIVACAINE 0.2% 200 MG/100 ML BAG EP PRN (07:29)
[2021-07-19] MEDS ORDERED: METOCLOPRAMIDE 10 MG/2 ML VIAL IVP PRN (07:29)
--- NOTE | 2021-07-19 07:44 | ANESTHESIA ---
Pre-Anesthesia VS, & Labs - Diagnosis Active labor - Procedure labor epidural Vital Signs: Temp Pulse Resp BP Pulse Ox 36.5 C 87 18 134/89 H 07/19/21 03:32 07/19/21 03:32 07/19/21 03:32 07/19/21 03:32 Height: 5 ft 1 in Weight (kg): 60.101 kg Body Mass Index: 25.0 BMI Classification: Overweight - NPO >8 hours - Is Patient ?: Yes - Lab Results Current Lab Results: Laboratory Tests 07/19/21 03:00: WBC 10.4, RBC 5.02, Hgb 11.6 L, Hct 36.8 L, MCV 73.3 L, MCH 23.1 L, MCHC 31.5 L, RDW 15.9 H, Plt Count 271, MPV 11.7 H, Neut # (Auto) 7.1 H, Lymph # (Auto) 2.2, Sac # (Auto) 0.8, Eos # (Auto) 0.2, Baso # (Auto) 0.0, Absolute Nucleated RBC 0.06, Nucleated RBC % 0.6 07/19/21 03:00: Blood Type AB POSITIVE, Antibody Screen NEGATIVE Lab results reviewed: Yes Fish Bones: 07/19/21 03:00 Home Medications and Allergies Active Medications Carboprost Tromethamine (Carboprost Tromethamine 250 Mcg/Ml Amp) 250 mcg IM Q15M PRN PRN Reason: Step 4: Hemorrhage protocol Stop: 07/24/21 03:16 Diphenhydramine HCl (Diphenhydramine Inj 50 Mg/Ml Vial) 12.5 - 25 mg IVP Q6HR PRN PRN Reason: ITCHING Ephedrine Sulfate (Ephedrine 50 Mg/Ml Vial) 5 mg IVP Q5M PRN PRN Reason: For SBP<100;give until SBP>100 Fentanyl (Fentanyl 100 Mcg/2 Ml Vial) 50 mcg IVP Q1H PRN PRN Reason: PAIN Last Admin: 07/19/21 03:53 Dose: 50 mcg Documented by: Oxytocin/Sodium Chloride (Pitocin/Sodium Chloride) 500 mls @ 999 mls/hr IV PRN PRN; Protocol PRN Reason: POST- HEMORR PREVENTION Stop: 07/24/21 03:16 Tranexamic Acid (Tranexamic 1,000 Mg/100ml-Nacl) 1,000 mg in 100 mls @ 600 mls/hr IV .ONCE PRN PRN Reason: EBL >1200mL and within 3hr Stop: 07/24/21 03:16 Lactated Ringer's (Lr) 1,000 mls @ 150 mls/hr IV .Q6H40M NETO Last Admin: 07/19/21 03:40 Dose: 150 mls/hr Documented by: Ropivacaine (Naropin 0.2%) 200 mg in 100 mls @ 0 mls/hr EP PRN PRN; Protocol PRN Reason: PAIN Lidocaine HCl (Lidocaine-Mpf 1% 30 Ml Vial) 30 ml ID .ONCE PRN PRN Reason: PERINEAL REPAIR Stop: 07/24/21 03:16 Methylergonovine Maleate (Methylergonovine 0.2 Mg/Ml Vial) 0.2 mg IM .ONCE PRN PRN Reason: Step 2: Hemorrhage protocol Stop: 07/24/21 03:16 Metoclopramide HCl (Metoclopramide 10 Mg/2 Ml Vial) 10 mg IVP Q6HR PRN PRN Reason: Nausea / Vomiting Misoprostol (Misoprostol 200 Mcg Tablet) 800 mcg BC .ONCE PRN PRN Reason: Step 3: Hemorrhage protocol Stop: 07/24/21 03:16 Nalbuphine HCl (Nalbuphine 10 Mg/Ml Amp) 2.5 - 5 mg IVP Q4H PRN PRN Reason: ITCHING Naloxone HCl (Naloxone 0.4 Mg/Ml Vial) 0.1 mg IVP Q2M PRN PRN Reason: RR<8 Ondansetron HCl (Ondansetron 4 Mg/2 Ml Vial) 4 mg IVP Q4H PRN PRN Reason: Nausea / Vomiting Ondansetron HCl (Ondansetron 4 Mg/2 Ml Vial) 4 mg IVP Q6HR PRN PRN Reason: Nausea / Vomiting Oxytocin (Oxytocin 10 Unit/Ml Vial) 10 unit IM .ONCE PRN PRN Reason: Step one: If no IV access Stop: 07/24/21 03:16 Sodium Chloride (Sodium Chloride Flush 0.9% 10 Ml Syringe) 10 ml IVP PRN PRN PRN Reason: NEEDED PER PROVIDER ORDERS Sodium Chloride (Sodium Chloride Flush 0.9% 10 Ml Syringe) 10 ml IVP 0100,0900,1700 [facility] Allergies/Adverse Reactions: Allergies Allergy/AdvReac Type Severity Reaction Status Date / Time No Known Drug Allergies Allergy Verified 03/09/20 23:08 Anes History & Medical History - Anesthetic History Anesthesia Complications: reports: No previous complications Family history of Anesthesia Complications: Denies Family history of Malignant Hyperthermia: Denies - Medical History Cardiovascular: reports: None Pulmonary: reports: None Gastrointestinal: reports: None Urinary: reports: None Neuro: reports: None Smoking Status: Never smoker - Obstetrical History : 2 Parity: 0 Events: reports: None Exam General: Alert, Oriented x3, Cooperative, No acute distress Dental: WNL Mouth Openin Fingerbreadth Neck Mobility: Normal Mallampati classification: II Respiratory: Lungs clear, Normal breath sounds, No respiratory distress, No accessory muscle use Cardiovascular: Regular rate, Normal S1, Normal S2, No murmurs Plan Anesthesia Type: Epidural Consent for Procedure(s) Verified and Reviewed: Yes Code Status: Attempt Resuscitation ASA classification: 2-Mild systemic disease Is this case an emergency?: No
[2021-07-19] MEDS ORDERED: SODIUM CHLORIDE FLUSH 0.9% 10 ML SYRINGE IVP SCH (09:00)
[2021-07-19] MEDS ORDERED: OXYTOCIN/SODIUM CHLORIDE 500 ML IV SCH (09:48)
[2021-07-19] MEDS ORDERED: ONDANSETRON ODT 4 MG TABLET TL PRN (11:03)
[2021-07-19] MEDS ORDERED: SIMETHICONE CHEW 80 MG TABLET PO PRN (11:03)
[2021-07-19] MEDS ORDERED: HYDROCORTISONE 1% CREAM 28 GM TUBE PR PRN (11:03)
--- NOTE | 2021-07-19 11:14 | DELIVERY NOTE ---
Delivery Note - Labor Labor: positive: Spontaneous, Other (Second stage pitocin) - Delivery Method Infant Delivery Method: positive: Vacuum assist - Presentation Presentation: positive: Vertex, Compound, CASTRO - right occiput anterior - Nuchal Cord Nuchal Cord: positive: None - Anesthetic Anesthetic Type: - Amniotic Fluid Description Amniotic Fluid Description: positive: Clear - Vacuum Use Indication for Vacuum Use: positive: Shortening of 2nd stage for maternal be nefit, Suspicion of immediate or potential compromise Type of Vacuum Cup: positive: Cup: Rigid Vacuum Extraction: positive: Successful Number of pop-offs: 1 - Episiotomy Type Episiotomy Type: positive: None - Laceration Laceration: positive: 1st degree, Labial - Suture Suture Type: positive: Vicryl Suture Size: positive: 3-0 - Delivery Outcome Delivery Outcome: positive: Livebirth - [place] : positive: Placed in direct skin contact with mother, Stimulated, Warmed, Carlin used [place] sex: positive: Male - Cord Cord: positive: 3 vessels - Placenta Placenta: positive: Intact, Spontaneous, Expressed - Estimated Blood Loss Estimated Blood Loss (in cc): 150 - Post Delivery Events Post Delivery Events: positive: No post delivery events - Delivery Comments (Free Text/Narrative) Delivery Comments (Free Text/Narrative): Patient is a 30-year-old G2, P1 at 39 weeks 3 days gestation by LMP consistent with 11-week ultrasound who presented with contractions that started 07/18/21 She called triage earlier in the evening complaining of contractions 8 to 10 minutes apart. These progressed throughout the morning until now when they are every 3-5 minutes with increased intensity. No leaking of fluid or vaginal bleeding. She has good movement. She was scheduled for induction of labor on 07/20/21. Presented in labor. has been complicated by intrauterine growth restriction and was consulted with [facility] with most recent ultrasound showing 6.5 percentile.In addition, she has beta thalassemia trait, but father of baby was negative. Most recent hemoglobin and hematocrit were normal. Has been supplementing with iron this . STAGE I: Admitted at 5 cm dilation in spontaneous labor. Spontaneous rupture of membranes at 6:53 am, clear fluid. Epidural for pain management. No augmentation was indicated during Satge I labor. GBS negative, antibiotic ppx not indicated. Complete at 8:21 am. Cat II tracing intermittent during latter half of Stage I labor. STAGE II: Patient started pushing at 8:56. Pushed well but tracing showed recurrent deep decels to the 70s and increasing maternal fatigue. Second stage pitocin was initiated at 1 mU/min. Poor descent was noted with increase in maternal fatigue. Decision was made to proceed with vacuum assisted delivery. position noted to be CASTRO. Bladder drained. Kiwi rigid cup vacuum was placed. delivered after 1 pop off and 180 sec of combined placement and activation of the vacuum. Infant was delivered to maternal chest. Cord was clamped x2 and cut by patient after 1 minute. Cord pulsations had ceased as the majority of the placenta had delivered with with despite large length of cord. Apgars were 7/9. Weight pending. STAGE III: Placenta was partialyl delivered at time of infant delivery. at 10:14, the placenta delivered from the vagina with brief expressive efforts. It was examined and found to be intact. Examination of the perineum showed bilateral first degree lacerations at the medial aspect of the labia. Both were repaired in the usual sterile fashion in a combination of mattress and subcutaneous sutures using 3-0 Vicryl. Good hemostasis was noted. Total EBL 150 cc
[2021-07-19] MEDS ORDERED: LACTATED RINGERS 1,000 ML IV SCH (12:00)
[2021-07-19] MEDS: IBUPROFEN 600 MG TABLET PO SCH ×3 (12:06→23:55)
[2021-07-19] MEDS: ACETAMINOPHEN 500 MG TABLET PO SCH ×2 (12:06→21:36)
[2021-07-19] MEDS: DOCUSATE SODIUM 100 MG CAPSULE PO PRN (21:36)
[2021-07-20] MEDS: IBUPROFEN 600 MG TABLET PO SCH ×3 (06:17→19:51)
[2021-07-20] MEDS: ACETAMINOPHEN 500 MG TABLET PO SCH ×3 (06:17→22:03)
[2021-07-20] MEDS: DOCUSATE SODIUM 100 MG CAPSULE PO PRN ×2 (10:14→22:03)
[2021-07-21] MEDS: IBUPROFEN 600 MG TABLET PO SCH ×4 (02:10→19:39)
[2021-07-21] MEDS: ACETAMINOPHEN 500 MG TABLET PO SCH ×2 (06:15→13:37)
[2021-07-21] MEDS: DOCUSATE SODIUM 100 MG CAPSULE PO PRN (08:17)
--- NOTE | 2021-07-21 10:23 | PROVIDER PROGRESS NOTE ---
Subjective - Prog Note Date Prog Note Date: 07/20/21 Prog Note Time: 14:00 - Subjective Subjective: Patient is doing well. Baby is being observed an additional day due to SGA. Plan for frenulectomy tomorrow. Pain well managed. Voiding. Flatus- no bowel mo vement. BF going well. Objective - Vital Signs/Intake & Output Reviewed Vital Signs: Yes Vital Signs: Vital Signs x48h Temp Pulse Resp BP Pulse Ox 07/21/21 08:27 98.4 F 87 14 115/73 100 Intake & Output: Intake & Output 07/18/21 07/19/21 07/20/21 07/21/21 23:59 23:59 23:59 23:59 Intake Total 1562.5 1000 Output Total 350 Balance 1212.5 1000 - Objective General Appearance: positive: No acute distress Respiratory: positive: No respiratory distress Cardiovascular: positive: Other (RR) Abdomen: positive: Other (S&NT, ff below umbi) Back: positive: Nml inspection Neurologic/Psychiatric: positive: Other (A&O,) - Lab Results Fish Bones: 07/19/21 03:00 Assessment/Plan - Problem List (1) Vacuum-assisted vaginal delivery Impression: PPD#1: Patient is doing well Plan for DC in am when is cleared for DC
--- NOTE | 2021-07-21 10:29 | PROVIDER PROGRESS NOTE ---
Subjective - Prog Note Date Prog Note Date: 07/21/21 Prog Note Time: 10:27 - Subjective Subjective: going better today even though frenulectomy not yet completed. Patient is up and ambulating, tolerating po, and voiding. Pain is well managed with pain medications. Objective - Vital Signs/Intake & Output Reviewed Vital Signs: Yes Vital Signs: Vital Signs x48h Temp Pulse Resp BP Pulse Ox 07/21/21 08:27 98.4 F 87 14 115/73 100 Intake & Output: Intake & Output 07/18/21 07/19/21 07/20/21 07/21/21 23:59 23:59 23:59 23:59 Intake Total 1562.5 1000 Output Total 350 Balance 1212.5 1000 - Objective General Appearance: positive: No acute distress Respiratory: positive: No respiratory distress Cardiovascular: positive: Other (RR) Abdomen: positive: Other (S&NT/ND, FF below umbi) Skin: positive: Color nml Extremities: positive: Non-tender, No pedal edema Neurologic/Psychiatric: positive: Oriented x3 - Lab Results Fish Bones: 07/19/21 03:00 Assessment/Plan - Problem List (1) Vacuum-assisted vaginal delivery Impression: PPD#2: Doing well Meeting goals for discharge Routine DC instructions given Rh positive/Rub imm
--- NOTE | 2021-07-21 12:47 | Discharge Plan ---
Discharge Plan Problem Reviewed?: Yes Disposition: Home, Self Care Condition: Good Prescriptions: Acetaminophen [Acetaminophen Extra Strength] 1,000 mg PO Q8H PRN #60 tablet PRN Reason: Pain Docusate Sodium 100Mg Capsule [Colace 100Mg Capsule] 100 - 200 mg PO BID PRN #60 cap PRN Reason: Constipation Ibuprofen [Motrin] 600 mg PO Q6H PRN #60 tab PRN Reason: Pain Activity Restrictions: Additional Comments (Nothing in the vagina for 6 weeks: No intercourse, tampons, douching Call for: -Fever greater than 100.5 - Pain that does not improve with pain medication -Heavy bleeding in which you are soaking a pad an hour for 2 hours in a row No tub baths or hot tubs for 4 weeks) Shower Restrictions: No Additional Instructions or Follow Up instructions: Ibuprofen 600 mg by mouth every 6 hours as needed for pain Acetaminophen 500-1000 mg by mouth every 8 hours as needed for pain Docusate 100-200 mg by mouth twice a day as needed for constipation No Smoking: If you smoke, Please STOP! Call for help. Follow-up with: Leanna Cunningham MD [Provider Admit Priv/Credential] -
--- NOTE | 2021-07-21 13:15 | DISCHARGE SUMMARY ---
Discharge Summary Discharge Date: 07/21/21 Discharging Provider: Octavio Condition at Discharge: Good Discharge Disposition: 01 Home, Self Care - ALLERGIES Allergies/Adverse Reactions: Allergies Allergy/AdvReac Type Severity Reaction Status Date / Time No Known Drug Allergies Allergy Verified 03/09/20 23:08 - MEDICATIONS Home Medications: Ambulatory Orders Medication Instructions Recorded Confirmed Acetaminophen [Acetaminophen Extra 1,000 mg PO Q8H PRN #60 tablet 07/21/21 Strength] Docusate Sodium 100Mg Capsule 100 - 200 mg PO BID PRN #60 cap 07/21/21 [Colace 100Mg Capsule] Ibuprofen [Motrin] 600 mg PO Q6H PRN #60 tab 07/21/21 - LABS Result Diagrams: 07/19/21 03:00
--- NOTE | 2021-07-21 13:17 | DISCHARGE SUMMARY ---
Discharge Summary Condition at Discharge: Good Discharge Disposition: 01 Home, Self Care - HPI History of Present Illness: Patient is a 30-year-old G2, P1 at 39 weeks 3 days gestation by LMP consistent with 11-week ultrasound who presented with contractions that started 07/18/21 She called triage earlier in the evening complaining of contractions 8 to 10 minutes apart. These progressed throughout the morning until now when they are every 3-5 minutes with increased intensity. No leaking of fluid or vaginal bleeding. She has good movement. She was scheduled for induction of labor on 07/20/21. Presented in labor. has been complicated by intrauterine growth restriction and was consulted with [facility] with most recent ultrasound showing 6.5 percentile.In addition, she has beta thalassemia trait, but father of baby was negative. Most recent hemoglobin and hematocrit were normal. Has been supplementing with iron this . - HOSPITAL COURSE Hospital Course: STAGE I: Admitted at 5 cm dilation in spontaneous labor. Spontaneous rupture of membranes at 6:53 am, clear fluid. Epidural for pain management. No augmentation was indicated during Satge I labor. GBS negative, antibiotic ppx not indicated. Complete at 8:21 am. Cat II tracing intermittent during latter half of Stage I labor. STAGE II: Patient started pushing at 8:56. Pushed well but tracing showed recurrent deep decels to the 70s and increasing maternal fatigue. Second stage pitocin was initiated at 1 mU/min. Poor descent was noted with increase in maternal fatigue. Decision was made to proceed with vacuum assisted delivery. position noted to be CASTRO. Bladder drained. Kiwi rigid cup vacuum was placed. delivered after 1 pop off and 180 sec of combined placement and activation of the vacuum. was delivered to maternal chest. Cord was clamped x2 and cut by patient after 1 minute. Cord pulsations had ceased as the majority of the placenta had delivered with with infant despite large length of cord. Apgars were 7/9. Weight pending. STAGE III: Placenta was partialyl delivered at time of delivery. at 10:14 , the placenta delivered from the vagina with brief expressive efforts. It was examined and found to be intact. Examination of the perineum showed bilateral first degree lacerations at the medial aspect of the labia. Both were repaired in the usual sterile fashion in a combination of mattress and subcutaneous sutures using 3-0 Vicryl. Good hemostasis was noted. Total EBL 150 cc course was uncomplicated. Baby was observed for low birthweight. By PPD#2, mother and baby were meeting goals for discharge. Rh positive/Rub immune - ALLERGIES Allergies/Adverse Reactions: Allergies Allergy/AdvReac Type Severity Reaction Status Date / Time No Known Drug Allergies Allergy Verified 03/09/20 23:08 - MEDICATIONS Home Medications: Ambulatory Orders Medication Instructions Recorded Confirmed Acetaminophen [Acetaminophen Extra 1,000 mg PO Q8H PRN #60 tablet 07/21/21 Strength] Docusate Sodium 100Mg Capsule 100 - 200 mg PO BID PRN #60 cap 07/21/21 [Colace 100Mg Capsule] Ibuprofen [Motrin] 600 mg PO Q6H PRN #60 tab 07/21/21 - LABS Result Diagrams: 07/19/21 03:00 - FOLLOW UP Follow Up: FU with Octavio in one week - TIME SPENT Time Spent in Discharge (Minutes): 30
[2021-07-21 17:27] VITALS: BP 127/72
== END 2021-07-21 19:45 | disposition home or self-care (01) | DRG 805 ==
LOC: WFO 02:48 → FBP 02:50 → WFO 03:13 → FBP 03:14
PROVIDERS: ADMIT Obstetrics & Gynecology; ATTEND Obstetrics & Gynecology
PROC: 10D07Z6 Extraction of Products of Conception, Vacuum, Via Natural or Artificial Opening (ICD-10-PCS; principal; 2021-07-19)
PROC: 0HQ9XZZ Repair Perineum Skin, External Approach (ICD-10-PCS; 2021-07-19)
DX: O36.5930 Maternal care for other known or suspected poor fetal growth, third trimester, not applicable or unspecified (principal); O99.42 Diseases of the circulatory system complicating childbirth; Z37.0 Single live birth; D56.3 Thalassemia minor; O62.2 Other uterine inertia; O75.81 Maternal exhaustion complicating labor and delivery; O77.8 Labor and delivery complicated by other evidence of fetal stress; O32.4XX0 Maternal care for high head at term, not applicable or unspecified; O70.0 First degree perineal laceration during delivery; Z3A.39 39 weeks gestation of pregnancy
CPT/HCPCS: 36415; 85025; 86850; 86900; 86901; A9270; J7120

== ENCOUNTER 2021-07-28 10:28 | Outpatient (CLI) | payer OTHER | END 2021-07-28 10:29 | disposition home or self-care (01) | LOC: LAB 10:28 | PROVIDERS: ATTEND Obstetrics & Gynecology | DX: E55.9 Vitamin D deficiency, unspecified (principal) | CPT/HCPCS: 82306 ==